=== PATIENT | female | born 1970 | race American Indian/Alaskan Native ===

== ENCOUNTER 2018-04-20 19:46 | Emergency (ER) | payer OTHER ==
[2018-04-20 20:18] LABS: Hematocrit 40.1 % (30.3-42.9); Hemoglobin 13.6 gm/dl (10.1-14.3); Mean Corpuscular HGB Conc 34 % (30-34); Mean Corpuscular Hemoglobin 27 pg (28-32); Mean Corpuscular Volume 79 fl (79-97); Platelet Count 227 K/mm3 (140-440); Red Blood Count 5.06 M/mm3 (3.65-5.03); Red Cell Distribution Width 15.2 % (13.2-15.2)
[2018-04-20 20:38] LABS: Bilirubin,Urine NEG (Negative); Blood,Urine NEG (Negative); Color,Urine Yellow (Yellow); Hyaline Casts,Urine 1 /LPF; Mucus,Urine FEW /HPF
--- NOTE | 2018-04-20 22:29 | Emergency Department Report ---
HPI - General Chief Complaint: Abdominal Pain Time Seen by Provider: 04/20/18 21:37 - HPI HPI: 48-year-old Afro-[place] female presents to the emergency department with a complaint of some right-sided flank pain, difficulty with urination and some hematuria. The patient was at work when she felt like she needed to urinate. She tried for about 30 minutes but was unsuccessful. She does have a history of some chronic kidney disease and called her occ therapy asst, Dr. Rosado, who told her to come to the emergency department for further evaluation. When she got here she was able to urinate and noticed some blood. She denies any fever, nausea, vomiting, back pain. She has a past medical history of hypertension as well. She has a primary care physician but cannot currently remember the name. She did not take anything for her symptoms prior to presentation. ED Past Medical Hx - Past Medical History Hx Hypertension: Yes Hx Renal Disease: Yes (STAGE 1) Additional medical history: ? RIGHT HEART BLOCKAGE- - Surgical History Additional Surgical History: ECHO-03/2018 AND THALLIUM STRESS TEST, LEFT CARPEL, TUBILIGATION - Social History Smoking Status: Never Smoker Substance Use Type: None ED Review of Systems ROS: Stated complaint: HEMATURIA Other details as noted in HPI Comment: All other systems reviewed and negative Constitutional: denies: chills, fever ENT: denies: ear pain, throat pain Respiratory: denies: cough, shortness of breath, wheezing Cardiovascular: denies: chest pain, palpitations Gastrointestinal: other (flank pain). denies: vomiting Genitourinary: dysuria, hematuria Musculoskeletal: denies: back pain, joint swelling, arthralgia Skin: denies: rash, lesions Neurological: denies: headache, weakness, paresthesias Physical Exam - Physical Exam Vital Signs: Vital Signs 04/20/18 04/20/18 19:47 22:01 Temperature 98.8 F Pulse Rate 87 Respiratory 18 16 Rate Blood Pressure 143/90 O2 Sat by Pulse 100 100 Oximetry Physical Exam: GENERAL: The patient is well-developed well-nourished. HENT: Normocephalic. Atraumatic. Patient has moist mucous membranes. EYES: Extraocular motions are intact. NECK: Supple. Trachea is midline. CHEST/LUNGS: Clear to auscultation. There is no respiratory distress noted. HEART/CARDIOVASCULAR: Regular. There is no tachycardia. There is no murmur. ABDOMEN: Abdomen is soft, nontender. Patient has normal bowel sounds. There is no abdominal distention. SKIN: Skin is warm and dry. NEURO: The patient is awake, alert, and oriented. The patient is cooperative. The patient has no focal neurologic deficits. The patient has normal speech. MUSCULOSKELETAL: There is no tenderness or deformity. There is no limitation range of motion. There is no evidence of acute injury. ED Course Vital Signs 04/20/18 04/20/18 19:47 22:01 Temperature 98.8 F Pulse Rate 87 Respiratory 18 16 Rate Blood Pressure 143/90 O2 Sat by Pulse 100 100 Oximetry - Consultations Consultation #1: I spoke with the patient's occ therapy asst, Dr. Rosado, who listened to the CT findings, labs including the patient's renal insufficiency. It sounds like the patient's renal function has decreased from the labs she had reviewed yesterday, that had come from February of this year. She says that the patient is okay for discharge home but she has instructed the patient to stop the hydrochlorothiazide-lisinopril blood pressure medication. She will have someone from her office call in a new blood pressure medication in the morning. And she will arrange for a follow-up appointment sooner than the scheduled June. 04/20/18 23:10 ED Medical Decision Making - Lab Data Result diagrams: 04/20/18 20:03 04/20/18 20:03 - Radiology Data Radiology results: report reviewed PROCEDURE: CT ABDOMEN PELVIS WO CON TECHNIQUE: Computerized axial tomography of the abdomen and pelvis was performed without intravenous contrast. This study is performed without intravascular contrast material and its sensitivity for abdominal and pelvic pathology, including neoplasms, inflammation, abscess, free fluid, thrombosis, arterial dissection and infarction, is reduced compared with a contrast enhanced study. HISTORY: flank pain, hematuria, dysuria COMPARISON: No prior studies are available for comparison. FINDINGS: Liver, spleen, pancreas and adrenal glands are within normal limits. An oval cystic lesion measuring 2.5 x 1.5 centimeters is noted involving upper pole right kidney. Bilateral kidneys demonstrate focal areas of scarring. There are no calculi or hydronephrosis. Urinary bladder is minimally filled with normal outlines. Mild degree urinary bladder wall thickening is noted. Aorta is of normal caliber. There is no free fluid or free air. Gallbladder is partially distended. Small bowel loops are within normal limits. Moderate degree residual stool is noted. Appendix is normal. Vertebral height is normal.. IMPRESSION: A cystic lesion of right kidney cannot be further evaluated on this noncontrast study Mild degree noted bladder wall thickening may represent a cystitis versus detrusor muscle hypertrophy. Moderate degree residual stool.. Transcribed By: [facility] [place] Dictated By: MARYANNE JEROME Electronically Authenticated By: MARYANNE JEROME Signed Date/Time: 04/20/18 6960 - Medical Decision Making Patient presented after she had some right flank pain and difficulty with urination. However after she got to the emergency department the patient was able to urinate freely but did see some blood. A CT scan of the abdomen and pelvis without contrast was done that did not show any signs of any kidney stones, malignancy or any other obvious acute process. However there is a stable cystic lesion of the right kidney and some bladder wall thickening and moderate stool volume. The labs show some renal sufficiency with a creatinine of 2.1 and a GFR of 25. I spoke with the patient's occ therapy asst to says that this sounds like some worsening of her renal insufficiency but that she is safe for discharge home at this time. She will stop taking the hydrochlorothiazide and lisinopril and will be prescribed a new blood pressure medication by the nephrology service tomorrow morning. They will also arrange for a follow-up appointment in the near future. All of the labs, imaging and plan were discussed with the patient and she understands and agrees. She will return to the ER with any worsening of her symptoms or any acute distress. - Differential Diagnosis nephrolithiasis, pyelonephritis, UTI, malignancy Critical Care Time: No Critical care attestation.: If time is entered above; I have spent that time in minutes in the direct care of this critically ill patient, excluding procedure time. ED Disposition Clinical Impression: Flank pain Hypertension Qualifiers: Hypertension type: essential hypertension Qualified Code(s): I10 - Essential ( primary) hypertension Acute on chronic renal failure Qualifiers: Acute renal failure type: unspecified Chronic kidney disease stage: unspecified stage Qualified Code(s): N17.9 - Acute kidney failure, unspecified Disposition: DC- TO HOME OR SELFCARE Is pt being admited?: No Condition: Stable Instructions: Chronic Kidney Disease (ED), Hypertension (ED), Flank Pain (ED) Additional Instructions: Please stop taking the hydrochlorothiazide-lisinopril blood pressure medication. Dr. Rosado's office is going to call in a different blood pressure medication for you in the morning. In the meantime, stay away from foods that are high in salt and caffeinated products. Keep a blood pressure log. Try to stay hydrated. Return to the emergency Department with any worsening of your symptoms or any acute distress. Referrals: MELANIE ROSADO MD [Staff Physician] - 3-5 Days Time of Disposition: 23:10
[2018-04-20 22:37] VITALS: BP 167/91
--- NOTE | 2018-04-20 22:45 | Cat Scan Report ---
FINAL REPORT PROCEDURE: CT ABDOMEN PELVIS WO CON TECHNIQUE: Computerized axial tomography of the abdomen and pelvis was performed without intravenous contrast. This study is performed without intravascular contrast material and its sensitivity for abdominal and pelvic pathology, including neoplasms, inflammation, abscess, free fluid, thrombosis, arterial dissection and infarction, is reduced compared with a contrast enhanced study. HISTORY: flank pain, hematuria, dysuria COMPARISON: No prior studies are available for comparison. FINDINGS: Liver, spleen, pancreas and adrenal glands are within normal limits. An oval cystic lesion measuring 2.5 x 1.5 centimeters is noted involving upper pole right kidney. Bilateral kidneys demonstrate focal areas of scarring. There are no calculi or hydronephrosis. Urinary bladder is minimally filled with normal outlines. Mild degree urinary bladder wall thickening is noted. Aorta is of normal caliber. There is no free fluid or free air. Gallbladder is partially distended. Small bowel loops are within normal limits. Moderate degree residual stool is noted. Appendix is normal. Vertebral height is normal.. IMPRESSION: A cystic lesion of right kidney cannot be further evaluated on this noncontrast study Mild degree noted bladder wall thickening may represent a cystitis versus detrusor muscle hypertrophy. Moderate degree residual stool..
== END 2018-04-20 23:20 | disposition home or self-care (01) ==
LOC: ED 19:46
DX: N17.9 Acute kidney failure, unspecified (principal); R10.9 Unspecified abdominal pain; I10 Essential (primary) hypertension; Z98.51 Tubal ligation status
CPT/HCPCS: 36415; 74176; 80048; 81001; 85027